=== PATIENT | female | born 1985 | race Caucasian/White ===

== ENCOUNTER 2018-11-14 08:00 | Outpatient (CLI) | payer OTHER | END 2018-11-14 23:59 | disposition home or self-care (01) | LOC: LAB.R 08:00 | PROVIDERS: ATTEND Obstetrics & Gynecology | DX: R10.2 Pelvic and perineal pain (principal) | CPT/HCPCS: 87491; 87591 ==

== ENCOUNTER 2018-11-25 11:12 | Outpatient (CLI) | payer OTHER ==
--- NOTE | 2018-11-26 10:26 | Ultrasound Report ---
Reason: PELVIC PAIN, ACUTE Procedure Date: 11/25/2018 Accession Number: [id number] / [id number] Procedure: US - Pelvic w/Transvaginal CPT Code: FULL RESULT: EXAM: PELVIC ULTRASOUND EXAM DATE: 11/25/2018 01:55 PM. CLINICAL HISTORY: Pelvic pain, acute. COMPARISON: None. TECHNIQUE: Realtime transabdominal pelvic scan performed to identify the uterus and adnexa and as an overview of other pelvic structures, followed by transvaginal scan to provide greater detail of the uterus and adnexa, with static image documentation. FINDINGS: Uterus: 9.0 x 4.5 x 5.7 cm. Anteverted position. Normal overall size and echotexture. Masses: None. Endometrium: 4.2 mm. Normal. Cervix: Unremarkable. Right Ovary: 4.3 x 2.1 x 3.1 cm, volume 14.6 cc. Normal echotexture and blood flow. Left Ovary: 4.1 x 2.7 x 3.1 cm, volume 17.9 cc. A 0.9 x 0.6 x 0.7 cm echogenic thick-walled structure, likely involuting follicle is noted. Free Fluid: None. Other: None. IMPRESSION: No evidence of ovarian torsion or hemorrhagic cysts. [facility]
== END 2018-11-25 11:13 | disposition home or self-care (01) ==
LOC: DI 11:12
PROVIDERS: ATTEND Obstetrics & Gynecology
DX: R10.2 Pelvic and perineal pain (principal)
CPT/HCPCS: 76830; 76856

== ENCOUNTER 2019-12-10 17:00 | Emergency (ER) | payer OTHER ==
[2019-12-10 17:57] VITALS: BP 117/86
== END 2019-12-10 18:07 | disposition left against medical advice (07) ==
LOC: ED 17:00
DX: Z53.21 Procedure and treatment not carried out due to patient leaving prior to being seen by health care provider (principal)